=== PATIENT | female | born 1990 | race Caucasian/White ===

== ENCOUNTER 2018-02-03 15:30 | Observation (INO) ==
[2018-02-03] MEDS ORDERED: ONDANSETRON 4 MG/2 ML VIAL IV STA ×2 (15:56→17:25)
[2018-02-03] MEDS ORDERED: SODIUM CHLORIDE 0.9% 500 ML IV STA (15:56)
[2018-02-03 16:35] LABS: Hematocrit 37.3 VOL% (35.7-47.0); Hemoglobin 12.3 GM/DL (12.0-16.0); Red Blood Count 4.55 MC/CUMM (3.8-5.5); White Blood Count 16.2 T/CUMM (4-12)
[2018-02-03 16:36] LABS: Basophils # 0.1 10*3/uL (0.0-0.2); Basophils % 0.4 % (0.0-0.8); Eosinophils # 0.1 10*3/uL (0.0-0.87); Eosinophils % 0.7 % (0.00-10.9); Immature Granulocytes % 0.4 %; Immature Granulocytes Absolute 0.06 #; Lymphocytes % 12.4 % (21.3-54.2); Mean Corpuscular Hemoglobin 27 PG (27-34); Mean Platelet Volume 10.1 FL (9.6-12.0); Monocytes % 6.3 % (1.7-12.7); Neutrophils % 79.8 % (38.7-73.9); Platelet Count 332 T/CUMM (130-400); Red Cell Distribution Width 15.8 % (9.3-17.3)
[2018-02-03 17:09] LABS: Alanine Aminotransferase 15 U/L (13-56); Albumin 4.2 G/DL (3.4-5.0); Alkaline Phosphatase 75 U/L (45-117); Aspartate Amino Transferase 10 U/L (0-37); Bilirubin,Total < 0.39 MG/DL (0.2-1.0); Blood Urea Nitrogen 11 MG/DL (7-18); Calcium 8.8 MG/DL (8.5-10.1); Glucose 119 MG/DL (74-106); Osmolality,Calculated 278.4 MOS/KG (273-304); Potassium 3.7 MMOL/L (3.5-5.1); Sodium 140 MMOL/L (136-145); Total Protein 7.8 G/DL (6.4-8.3)
[2018-02-03] MEDS ORDERED: HYDROmorphone 2 MG/1 ML VIAL ONE (17:18)
[2018-02-03] MEDS ORDERED: HYDROmorphone 2 MG/1 ML VIAL IV STA (17:25)
[2018-02-03 17:48] LABS: Amorphous Crystals,Urine Occasional /HPF (Few); Apearance,Urine CLOUDY (Clear); Bilirubin,Urine Negative (Negative); Blood, Urine Moderate mg/dL (Negative); Glucose,Urine (UA) Negative (Negative); Ketones,Urine Negative (Negative); Mucus,Urine Occasional /LPF (Occasional); Nitrite,Urine Negative (Negative); Protein,Urine Negative; RBC,Urine 13 /HPF (0-4); Squamous Epithelial Cell,Urine Occasional /HPF (0-10); Urine Color Yellow (Yellow); Urine Specific Gravity 1.017 (1.001-1.035); WBC,Urine 40 /HPF (0-6)
[2018-02-03] MEDS ORDERED: ONDANSETRON 4 MG/2 ML VIAL IV PRN (19:37)
[2018-02-03] MEDS ORDERED: ENOXAPARIN 40 MG/0.4 ML SYRINGE SUBCUT SCH (21:00)
[2018-02-03] MEDS: PIPERACILLIN/TAZOBACTAM 3,375 MG in SODIUM CHLORIDE 0.9% 100 ML IV SCH (22:31)
[2018-02-03] MEDS: DEXTROSE 5% NACL 0.45% 1,000 ML IV SCH (22:33)
[2018-02-04] MEDS: PIPERACILLIN/TAZOBACTAM 3,375 MG in SODIUM CHLORIDE 0.9% 100 ML IV SCH (04:51)
[2018-02-04] MEDS: DEXTROSE 5% NACL 0.45% 1,000 ML IV SCH ×2 (04:52→17:11)
[2018-02-04] MEDS ORDERED: cefOXitin 2,000 MG in SYRINGE 1 EACH IV ONE (06:00)
[2018-02-04] MEDS ORDERED: FAMOTIDINE 20 MG TABLET PO ONE (08:04)
[2018-02-04] MEDS ORDERED: DIAZEPAM 5 MG TABLET PO ONE (08:04)
[2018-02-04] MEDS ORDERED: LACTATED RINGERS 1,000 ML IV SCH (08:30)
[2018-02-04] MEDS ORDERED: TISSUE ADHESIVE 1 EACH APPLICATOR TOP ONE (09:55)
[2018-02-04] MEDS ORDERED: LIDOCAINE 1%/EPI INJ 20 ML VIAL ONE (09:55)
[2018-02-04] MEDS ORDERED: ONDANSETRON 4 MG/2 ML VIAL IV PRN (11:22)
[2018-02-04] MEDS ORDERED: MEPERIDINE 25 MG/1 ML VIAL IV PRN (11:22)
[2018-02-04] MEDS: HYDROmorphone 2 MG/1 ML VIAL IV PRN ×2 (12:10→12:15)
[2018-02-04] MEDS ORDERED: HYDROmorphone 2 MG/1 ML VIAL ONE (12:11)
[2018-02-04] MEDS ORDERED: ACETAMINOPHEN 1,000 MG/100 ML VIAL IV ONE (12:18)
[2018-02-04] MEDS ORDERED: fentaNYL 100 MCG/2 ML VIAL ONE (12:18)
[2018-02-04] MEDS ORDERED: MIDAZOLAM 2 MG/2 ML VIAL ONE (12:18)
[2018-02-04] MEDS ORDERED: LACTATED RINGERS 1,000 ML IV ONE (12:19)
[2018-02-04] MEDS ORDERED: PROPOFOL 200 MG/20 ML VIAL IV ONE (12:19)
[2018-02-04] MEDS ORDERED: ROCURONIUM 100 MG/10 ML VIAL IV ONE (12:19)
[2018-02-04] MEDS ORDERED: GLYCOPYRROLATE 0.4 MG/2 ML VIAL ONE (12:19)
[2018-02-04] MEDS ORDERED: NEOSTIGMINE 10 MG/10 ML VIAL ONE (12:19)
[2018-02-04] MEDS ORDERED: SEVOFLURANE 1 UNIT/15 MINUTE INH ONE (12:20)
[2018-02-04 17:10] VITALS: BP 110/69
== END 2018-02-04 18:20 | disposition home or self-care (01) ==
LOC: N.EDINP 15:30 → N.ED 15:30 → N.EDINP 19:16 → N.5E 19:24
PROVIDERS: ADMIT Surgery; ATTEND Surgery
PROC: LAPCHOL (2018-02-04 10:05)